=== PATIENT | female | born 1970 | race Caucasian/White ===

== ENCOUNTER 2018-08-07 10:49 | Emergency (ER) | payer BC, OTHER ==
[2018-08-07 11:29] VITALS: BP 142/83
--- NOTE | 2018-08-07 11:48 | UC ---
[facility] Dental HPI - HPI Summary HPI Summary: dental pain x 10 days right lower back molar had a tooth extraction 10 days ago , pain is no improving , taking ibuprofen with some pain relief is no Amoxicillin 875 mg bid - History of Current Complaint Chief Complaint: UCDentalProblem Stated Complaint: DENTAL COMPLAINT Time Seen by Provider: 08/07/18 11:30 Hx Obtained From: Patient Hx Last Menstrual Period: 08/25/16 Onset/Duration: Gradual Onset, Lasting Days - 10, Still Present Severity: Moderate Pain Intensity: 5 Aggravating Factor(s): Cold, Chewing Alleviating Factor(s): Nothing Related History: Previous Dental Care on Same Tooth - tooth extraction 10 days ago Dental: 1 - tooth extraction - Allergies/Home Medications Allergies/Adverse Reactions: Allergies Allergy/AdvReac Type Severity Reaction Status Date / Time No Known Allergies Allergy Verified 08/07/18 11:20 Home Medications: Home Medications Ibuprofen TAB* [Advil TAB*] 800 mg PO Q6H PRN 08/07/18 [History Confirmed ] PMH/Surg Hx/FS Hx/Imm Hx Psychological History: Anxiety - Surgical History Surgical History: Yes Surgery Procedure, Year, and Place: nasal surgery. uterine fibroid removal - Family History Known Family History: Positive: Respiratory Disease - asthma - Social History Alcohol Use: None Substance Use Type: None Smoking Status (MU): Light Every Day Tobacco Smoker Type: Cigarettes Amount Used/How Often: 1/2ppd Review of Systems Constitutional: Negative Skin: Negative Eyes: Negative ENT: Dental Pain Respiratory: Negative Cardiovascular: Negative Genitourinary: Negative Is Patient Immunocompromised?: No All Other Systems Reviewed And Are Negative: Yes Physical Exam Triage Information Reviewed: Yes Appearance: Well-Appearing, Well-Nourished, Pain Distress Vital Signs: Initial Vital Signs Temp 98.2 F 08/07/18 11:19 Pulse 93 08/07/18 11:19 Resp 16 08/07/18 11:19 BP 142/83 08/07/18 11:19 Pulse Ox 98 08/07/18 11:19 Vital Signs Reviewed: Yes Eye Exam: Normal Eyes: Positive: Conjunctiva Clear ENT: Positive: Normal ENT inspection, Hearing grossly normal, Pharynx normal Dental: Positive: Other: - tooth extraction #29 Respiratory Exam: Normal Respiratory: Positive: Chest non-tender, Lungs clear, Normal breath sounds Cardiovascular: Positive: RRR, No Murmur, Pulses Normal Skin Exam: Normal Dental Complaint Course/Dx - Differential Dx/Diagnosis Provider Diagnoses: dental pain Discharge - Sign-Out/Discharge Documenting (check all that apply): Patient Departure All imaging exams completed and their final reports reviewed: No Studies - Discharge Plan Condition: Stable Disposition: HOME Prescriptions: HYDROcodone/ACETAMIN 5-325 MG* [Prospect 5-325 TAB*] 1 tab PO Q8H PRN #12 tab MDD 3 tabs PRN Reason: Pain Patient Education Materials: Toothache (ED) Referrals: No Primary Care Phys,NOPCP [Primary Care Provider] - Additional Instructions: please follow up with your dentist lolita - Billing Disposition and Condition Condition: STABLE Disposition: Home
== END 2018-08-07 11:53 | disposition home or self-care (01) ==
LOC: UCCORT 10:49
DX: K08.89 Other specified disorders of teeth and supporting structures (principal); K08.101 Complete loss of teeth, unspecified cause, class I
CPT/HCPCS: 99212; G0463

== ENCOUNTER 2018-12-11 18:41 | Emergency (ER) | payer OTHER ==
[2018-12-11 21:09] VITALS: BP 143/81
--- NOTE | 2018-12-11 21:29 | UC ---
UC General HPI - HPI Summary HPI Summary: 11/30/18, had what she thinks was the flu. she did improve and went back to work; however, the cough with congestion is worsening and she is very fatigued. no copd. + smoking. - History of Current Complaint Chief Complaint: UCGeneralIllness Stated Complaint: COUGH,CONGESTION,TIRED Time Seen by Provider: 12/11/18 21:13 Hx Obtained From: Patient Hx Last Menstrual Period: 11/30/18 Onset/Duration: Gradual Onset Pain Intensity: 0 Associated Signs & Symptoms: Negative: Chest Pain - Allergy/Home Medications Allergies/Adverse Reactions: Allergies Allergy/AdvReac Type Severity Reaction Status Date / Time No Known Allergies Allergy Verified 12/11/18 21:10 PMH/Surg Hx/FS Hx/Imm Hx - Additional Past Medical History Additional PMH: fibromyalgia - Surgical History Surgical History: Yes Surgery Procedure, Year, and Place: nasal surgery. uterine fibroid removal - Family History Known Family History: Positive: Respiratory Disease - asthma - Social History Occupation: Employed Full-time Alcohol Use: None Substance Use Type: None Smoking Status (MU): Current Some Day Smoker Type: Cigarettes Amount Used/How Often: 1/2ppd - Immunization History Vaccination Up to Date: Yes Review of Systems All Other Systems Reviewed And Are Negative: Yes Constitutional: Positive: Fatigue Skin: Positive: Negative Eyes: Positive: Negative ENT: Positive: Negative Respiratory: Positive: Cough Cardiovascular: Positive: Negative Gastrointestinal: Positive: Negative Genitourinary: Positive: Negative Motor: Positive: Negative Neurovascular: Positive: Negative Musculoskeletal: Positive: Myalgia Neurological: Positive: Negative Psychological: Positive: Negative Physical Exam Triage Information Reviewed: Yes Appearance: Ill-Appearing - but non toxic Vital Signs: Initial Vital Signs Temp 98.4 F 12/11/18 21:02 Pulse 110 12/11/18 21:02 Resp 17 12/11/18 21:02 BP 143/81 12/11/18 21:02 Pulse Ox 98 12/11/18 21:02 Eye Exam: Normal Eyes: Positive: Conjunctiva Clear ENT: Positive: Pharynx normal, TMs normal. Negative: Nasal congestion Neck: Positive: Supple, Nontender, No Lymphadenopathy Respiratory: Positive: No respiratory distress, Decreased breath sounds Cardiovascular: Positive: RRR, No Murmur. Negative: Tachycardia Abdomen Description: Positive: Nontender, No Organomegaly, Soft Bowel Sounds: Positive: Present Musculoskeletal: Positive: ROM Intact Neurological: Positive: Alert Psychological: Positive: Age Appropriate Behavior Skin Exam: Normal Diagnostics - Laboratory Diagnostic Studies Completed/Ordered: rapid flu=negative - Radiology No standard instances Radiology Interpretation Completed By: ED Physician - wet read=nad Course/Dx - Course Course Of Treatment: no inflitrate on cxr but worsening cough with congestion post influenza like illness thus will cover for secondary bacterial infection. - Differential Dx - Multi-Symptom Differential Diagnoses: Other - pneumonia, bronchitis, influenza - Diagnoses Provider Diagnosis: Cough, Fatigue Discharge - Sign-Out/Discharge Documenting (check all that apply): Patient Departure All imaging exams completed and their final reports reviewed: No - Discharge Plan Condition: Stable Disposition: HOME Prescriptions: Albuterol HFA INHALER* [Ventolin HFA Inhaler*] 2 puff INH Q6H #1 mdi Azithromycin TAB* [Zithromax TAB (Z-GENOVEVA) 250 mg #6 tabs] 2 tab PO .TODAY, THEN 1 DAILY #1 genoveva Patient Education Materials: Fatigue (ED), Acute Cough (ED) Forms: *Work Release Referrals: No Primary Care Phys,NOPCP [Primary Care Provider] - Additional Instructions: FOLLOW UP [facility] IN 5 DAYS FOR A RECHECK OR SOONER IF WORSE. - Billing Disposition and Condition Condition: STABLE Disposition: Home - Attestation Statements Provider Attestation: I was available for consult. This patient was seen by the GENOVEVA. The patient was not presented to, seen by, or examined by me. -Luma
[2018-12-11 21:31] LABS: Influenza A Molecular NEGATIVE (Negative); Influenza B Molecular NEGATIVE (Negative)
[2018-12-11] MEDS ORDERED: Azithromycin TAB* 250 MG PO ONE (21:50)
--- NOTE | 2018-12-12 12:23 | UC ---
- Progress Note Progress Note: Radiologist reading of chest x-ray from December 11, 2018 NAD Providers interpretation from same date also NAD therefore no discrepancy. Course/Dx - Diagnoses Provider Diagnoses: Cough, Fatigue Discharge - Sign-Out/Discharge Documenting (check all that apply): Patient Departure All imaging exams completed and their final reports reviewed: Yes - Discharge Plan Condition: Stable Disposition: HOME Prescriptions: Albuterol HFA INHALER* [Ventolin HFA Inhaler*] 2 puff INH Q6H #1 mdi Azithromycin TAB* [Zithromax TAB (Z-GENOVEVA) 250 mg #6 tabs] 2 tab PO .TODAY, THEN 1 DAILY #1 genoveva Patient Education Materials: Fatigue (ED), Acute Cough (ED) Forms: *Work Release Referrals: No Primary Care Phys,NOPCP [Primary Care Provider] - Additional Instructions: FOLLOW UP [facility] IN 5 DAYS FOR A RECHECK OR SOONER IF WORSE. - Billing Disposition and Condition Condition: STABLE Disposition: Home
== END 2018-12-11 21:57 | disposition home or self-care (01) ==
LOC: UCCORT 18:41
DX: R05 Cough (principal); R53.83 Other fatigue; F17.210 Nicotine dependence, cigarettes, uncomplicated
CPT/HCPCS: 71046; 99212; A9270-GY; G0463